=== PATIENT | female | born 1985 | race Caucasian/White ===

== ENCOUNTER 2018-12-09 17:30 | Emergency (ER) | payer BC ==
[~2018-12-09] VITALS: Ht 165.1 cm; Wt 80.0 kg
[2018-12-09] MEDS ORDERED: SODIUM CHLORIDE 0.9% 1,000 ML IV ONE (20:26)
[2018-12-09] MEDS ORDERED: KETOROLAC 30MG/ML VIAL IV STA (20:26)
[2018-12-09] MEDS ORDERED: TETRACAINE/BENZOCAINE/BUTAMBEN 20 GM SPRAY MM NR (20:30)
[2018-12-09] MEDS ORDERED: DEXAMETHASONE 10 MG/ML VIAL IV ONE (20:30)
[2018-12-09] MEDS ORDERED: CEFTRIAXONE 1 G PREMIX 50 ML IV ONE (20:30)
[2018-12-09] MEDS ORDERED: LIDOCAINE HCL/PF 1% 10 MG/ML 5ML VIAL IJ ONE (20:30)
[2018-12-10 07:25] VITALS: BP 110/80
== END 2018-12-10 07:37 | disposition short-term general hospital (02) ==
LOC: ER 19:00
DX: J36 Peritonsillar abscess (principal)
CPT/HCPCS: 42700; 81025; 87070; 87430; 96365; 96375; 99285; J0696; J1100; J1885; J3490; J7030; Z7610

== ENCOUNTER → 2024-02-13 | Outpatient (CLI) | payer BC ==
[2024-02-13 06:46] LABS: BASOPHILS % 0.7 % (0.0-2.0); EOSINOPHILS % 2.6 % (0.0-5.0); LYMPHOCYTES % 33.5 % (20.0-50.0); MEAN CORPUSCULAR HEMOGLOBIN 27.6 pg (28.0-32.0); MEAN CORPUSCULAR HGB CONC 33.4 g/dL (31.0-37.0); MEAN CORPUSCULAR VOLUME 82.5 fL (81.0-99.0); MEAN PLATELET VOLUME 9.2 fl (7.4-10.4); MONOCYTES % 7.5 % (2.0-8.0); NEUTROPHILS % 55.7 % (40.0-76.0); PLATELET 258 x1000/uL (130-400); RED BLOOD CELL COUNT 4.72 mill/uL (4.2-5.4); RED CELL DISTRIBUTION WIDTH 13.2 % (11.6-14.6); WHITE BLOOD COUNT 5.6 x1000/uL (4.5-11.0)
[2024-02-13 07:09] LABS: CLARITY URINE CLEAR (CLEAR); COLOR URINE YELLOW (YELLOW); GLUCOSE URINE 3+ (NEGATIVE); KETONES URINE NEGATIVE (NEGATIVE); LEUKOCYTE ESTERASE URINE NEGATIVE (NEGATIVE); NITRITE URINE NEGATIVE (NEGATIVE); OCCULT BLOOD URINE NEGATIVE (NEGATIVE); PROTEIN URINE NEGATIVE (NEGATIVE); SPECIFIC GRAVITY URINE 1.031 (1.005-1.030); UROBILINOGEN URINE 0.2 E.U./dL (0.2-1.0)
[2024-02-13 07:11] LABS: CALCIUM 9.2 mg/dL (8.7-10.4); CARBON DIOXIDE 25 mEq/L (21-32); CHLORIDE 99 mEq/L (98-107); POTASSIUM 3.8 mEq/L (3.5-5.1); SODIUM 132 mEq/L (136-145)
[2024-02-13 07:14] LABS: T4 FREE 1.21 ng/dL (0.89-1.76); THYROID STIMULATING HORMONE 3.52 uIU/mL (0.55-4.78)
[2024-02-13 07:15] LABS: TOTAL IRON BINDING CAPACITY 389 ug/dl (250-425)
[2024-02-13 07:16] LABS: CREATININE 0.8 mg/dL (0.6-1.0); GLUCOSE 315 mg/dL (70-105); IRON 38 ug/dL (50-170)
[2024-02-13 07:17] LABS: TRIGLYCERIDE 271 mg/dL (0-150); UREA NITROGEN BLOOD 9 mg/dL (9-23)
[2024-02-13 07:18] LABS: ALANINE AMINOTRANSFERASE 22 IU/L (10-49); ALBUMIN 4.1 g/dL (3.2-4.8); ASPARTATE AMINOTRANSFERASE 16 IU/L (<34); LDL CHOLESTEROL 119 mg/dL (5-100); PROTEIN TOTAL 7.4 g/dL (6.0-8.3)
[2024-02-13 07:19] LABS: BILIRUBIN TOTAL 0.4 mg/dL (0.1-1.0); CHOLESTEROL 195 mg/dL (<200); HDL CHOLESTEROL 41 mg/dL (>65)
[2024-02-13 07:40] LABS: MUCUS URINE 2+ /lpf (< = 2+); SQUAMOUS EPITHELIAL CELL URINE 1+ /lpf (RARE/1+)
[2024-02-13 07:41] LABS: RBC URINE NONE SEEN /hpf (0-2); WBC URINE 0-2 /hpf (0-2)
[2024-02-13 07:42] LABS: BACTERIA URINE TRACE
[2024-02-13 08:12] LABS: FERRITIN 11 ng/mL (10-291); VITAMIN B12 SERUM 578 pg/mL (211-911)
[2024-02-14 08:08] LABS: *THYROXINE INDEX FREE 2.4 (1.2-4.9); FOLICLE STIMULATING HORMONE 6.2 mIU/mL (.); LUTEINIZING HORMONE 5.9 mIU/mL (.); PROLACTIN 17.6 ng/mL (4.8-33.4); T4 THYROXINE 8.2 ug/dL (4.5-12.0); VITAMIN D 25-OH 18.9 ng/mL (30.0-100.0)
== END | disposition home or self-care (01) ==
LOC: US 06:04
PROVIDERS: ATTEND Internal Medicine Geriatric Medicine
DX: Z00.01 Encounter for general adult medical examination with abnormal findings (principal); D25.2 Subserosal leiomyoma of uterus; N39.0 Urinary tract infection, site not specified
CPT/HCPCS: 36415; 76830; 76856; 80053; 80061; 81003; 82306; 82607; 82728; 83001; 83002; 83036; 83540; 83550; 84146; 84436; 84439; 84443; 84479; 85025; 86592

== ENCOUNTER → 2024-04-03 | Outpatient (CLI) | payer BC ==
[2024-04-04 09:07] LABS: ESTRADIOL 41.9 pg/mL (.); FOLICLE STIMULATING HORMONE 4.1 mIU/mL (.); LUTEINIZING HORMONE 2.5 mIU/mL (.); PROGESTERONE 0.2 ng/mL (.); PROLACTIN 19.3 ng/mL (4.8-33.4)
[2024-04-07 09:10] LABS: TESTOSTERONE FREE 1.1 pg/mL (0.0-4.2)
== END | disposition home or self-care (01) ==
LOC: LAB 06:41
PROVIDERS: ATTEND Internal Medicine Geriatric Medicine
DX: N92.6 Irregular menstruation, unspecified (principal)
CPT/HCPCS: 36415; 82670; 83001; 83002; 83498; 84144; 84146; 84402; 84403; 84443

== ENCOUNTER → 2024-05-09 | Outpatient (CLI) | payer BC ==
[2024-05-09 07:43] LABS: CHLORIDE 104 mEq/L (98-107); POTASSIUM 3.8 mEq/L (3.5-5.1)
[2024-05-09 07:44] LABS: CARBON DIOXIDE 25 mEq/L (21-32); SODIUM 135 mEq/L (136-145)
[2024-05-09 07:49] LABS: CREATININE 0.7 mg/dL (0.6-1.0); GLUCOSE 95 mg/dL (70-105)
[2024-05-09 07:50] LABS: LDL CHOLESTEROL 86 mg/dL (5-100); TRIGLYCERIDE 148 mg/dL (0-150); UREA NITROGEN BLOOD 8 mg/dL (9-23)
[2024-05-09 07:51] LABS: ALANINE AMINOTRANSFERASE 37 IU/L (10-49); ALBUMIN 4.2 g/dL (3.2-4.8); ASPARTATE AMINOTRANSFERASE 26 IU/L (<34); CHOLESTEROL 131 mg/dL (<200)
[2024-05-09 07:52] LABS: BILIRUBIN TOTAL 0.7 mg/dL (0.1-1.0); HDL CHOLESTEROL 32 mg/dL (>65); PROTEIN TOTAL 7.5 g/dL (6.0-8.3)
[2024-05-09 08:01] LABS: BASOPHILS % 0.7 % (0.0-2.0); EOSINOPHILS % 1.7 % (0.0-5.0); HEMATOCRIT. 36.9 % (36.0-48.0); LYMPHOCYTES % 31.2 % (20.0-50.0); MEAN CORPUSCULAR HEMOGLOBIN 27.5 pg (28.0-32.0); MEAN CORPUSCULAR HGB CONC 32.5 g/dL (31.0-37.0); MEAN CORPUSCULAR VOLUME 84.5 fL (81.0-99.0); MEAN PLATELET VOLUME 9.8 fl (7.4-10.4); MONOCYTES % 7.4 % (2.0-8.0); PLATELET 232 x1000/uL (130-400); RED BLOOD CELL COUNT 4.36 mill/uL (4.2-5.4); RED CELL DISTRIBUTION WIDTH 16.1 % (11.6-14.6); WHITE BLOOD COUNT 6.1 x1000/uL (4.5-11.0)
== END | disposition home or self-care (01) ==
LOC: LAB 05:30
PROVIDERS: ATTEND Internal Medicine Geriatric Medicine
DX: E11.69 Type 2 diabetes mellitus with other specified complication (principal)
CPT/HCPCS: 36415; 80053; 80061; 83036; 85025

== ENCOUNTER → 2024-08-21 | Outpatient (CLI) | payer BC ==
[2024-08-21 07:32] LABS: CHLORIDE 105 mEq/L (98-107); SODIUM 137 mEq/L (136-145)
[2024-08-21 07:33] LABS: CARBON DIOXIDE 26 mEq/L (21-32)
[2024-08-21 07:34] LABS: CALCIUM 9.2 mg/dL (8.7-10.4)
[2024-08-21 07:38] LABS: CREATININE 0.7 mg/dL (0.6-1.0); GLUCOSE 90 mg/dL (70-105); IRON 42 ug/dL (50-170)
[2024-08-21 07:39] LABS: UREA NITROGEN BLOOD 14 mg/dL (9-23)
[2024-08-21 07:40] LABS: ALANINE AMINOTRANSFERASE 11 IU/L (10-49); ALBUMIN 4.1 g/dL (3.2-4.8); ASPARTATE AMINOTRANSFERASE 12 IU/L (<34)
[2024-08-21 07:41] LABS: BILIRUBIN TOTAL 0.5 mg/dL (0.1-1.0); PROTEIN TOTAL 7.3 g/dL (6.0-8.3); TOTAL IRON BINDING CAPACITY 552 ug/dl (250-425)
[2024-08-21 07:45] LABS: FERRITIN 4 ng/mL (10-291); VITAMIN B12 SERUM 519 pg/mL (211-911)
[2024-08-21 07:51] LABS: CLARITY URINE CLEAR (CLEAR); COLOR URINE YELLOW (YELLOW); GLUCOSE URINE NEGATIVE (NEGATIVE); KETONES URINE TRACE (NEGATIVE); LEUKOCYTE ESTERASE URINE 1+ (NEGATIVE); NITRITE URINE NEGATIVE (NEGATIVE); OCCULT BLOOD URINE NEGATIVE (NEGATIVE); PROTEIN URINE TRACE (NEGATIVE); SPECIFIC GRAVITY URINE 1.027 (1.005-1.030)
[2024-08-21 08:12] LABS: BACTERIA URINE 1+; RBC URINE 0-2 /hpf (0-2); SQUAMOUS EPITHELIAL CELL URINE 1+ /lpf (RARE/1+); YEAST URINE NONE SEEN
[2024-08-21 08:32] LABS: THYROID STIMULATING HORMONE 1.44 uIU/mL (0.55-4.78)
[2024-08-22 09:08] LABS: *CREATININE RANDOM URINE 231.6 mg/dL (Not Estab.); MICROALBUMIN RANDOM URINE 14.5 ug/mL (Not Estab.)
== END | disposition home or self-care (01) ==
LOC: LAB 06:40
PROVIDERS: ATTEND Internal Medicine Geriatric Medicine
DX: E11.69 Type 2 diabetes mellitus with other specified complication (principal)
CPT/HCPCS: 36415; 80053; 81003; 82043; 82570; 82607; 82728; 83036; 83540; 83550; 84436; 84443

== ENCOUNTER → 2025-02-24 | Outpatient (CLI) | payer BC ==
[2025-02-24 08:30] LABS: BASOPHILS % 0.6 % (0.0-2.0); HEMATOCRIT. 37.7 % (36.0-48.0); HEMOGLOBIN. 12.2 g/dL (12.0-16.0); LYMPHOCYTES % 40.1 % (20.0-50.0); MEAN CORPUSCULAR HGB CONC 32.3 g/dL (31.0-37.0); MEAN CORPUSCULAR VOLUME 80.4 fL (81.0-99.0); MEAN PLATELET VOLUME 9.5 fl (7.4-10.4); MONOCYTES % 7.3 % (2.0-8.0); PLATELET 204 x1000/uL (130-400); RED BLOOD CELL COUNT 4.69 mill/uL (4.2-5.4); RED CELL DISTRIBUTION WIDTH 18.8 % (11.6-14.6); WHITE BLOOD COUNT 4.9 x1000/uL (4.5-11.0)
[2025-02-24 08:39] LABS: CHLORIDE 102 mEq/L (98-107); POTASSIUM 4.2 mEq/L (3.5-5.1); SODIUM 138 mEq/L (136-145)
[2025-02-24 08:40] LABS: CARBON DIOXIDE 29 mEq/L (21-32)
[2025-02-24 08:45] LABS: CREATININE 0.7 mg/dL (0.6-1.0); GLUCOSE 93 mg/dL (70-105); TRIGLYCERIDE 75 mg/dL (0-150); UREA NITROGEN BLOOD 13 mg/dL (9-23)
[2025-02-24 08:46] LABS: LDL CHOLESTEROL 84 mg/dL (5-100)
[2025-02-24 08:47] LABS: ALANINE AMINOTRANSFERASE 39 IU/L (10-49); ALBUMIN 4.2 g/dL (3.2-4.8); ASPARTATE AMINOTRANSFERASE 25 IU/L (<34); BILIRUBIN TOTAL 0.6 mg/dL (0.1-1.0); CHOLESTEROL 140 mg/dL (<200); HDL CHOLESTEROL 48 mg/dL (>65); PROTEIN TOTAL 7.1 g/dL (6.0-8.3)
[2025-02-24 08:49] LABS: THYROID STIMULATING HORMONE 2.03 uIU/mL (0.55-4.78)
[2025-02-24 08:53] LABS: IRON 64 ug/dL (50-170)
[2025-02-24 08:56] LABS: TOTAL IRON BINDING CAPACITY 441 ug/dl (250-425)
[2025-02-24 09:00] LABS: FOLIC ACID (FOLATE) SERUM 16.07 ng/mL (>5.38)
== END | disposition home or self-care (01) ==
LOC: LAB 06:31
PROVIDERS: ATTEND Internal Medicine Geriatric Medicine
DX: E11.69 Type 2 diabetes mellitus with other specified complication (principal); E78.5 Hyperlipidemia, unspecified
CPT/HCPCS: 36415; 80053; 80061; 82728; 82746; 83036; 83540; 83550; 84443; 85025; 86800

== ENCOUNTER → 2025-03-03 | Outpatient (CLI) | payer BC | END | disposition home or self-care (01) | LOC: MAMMO 09:12 | PROVIDERS: ATTEND Internal Medicine Geriatric Medicine | DX: Z12.31 Encounter for screening mammogram for malignant neoplasm of breast (principal); R92.323 Mammographic fibroglandular density, bilateral breasts | CPT/HCPCS: 77063; 77067 ==

== ENCOUNTER → 2025-05-29 | Outpatient (CLI) | payer BC | END | disposition home or self-care (01) | LOC: US 09:06 | PROVIDERS: ATTEND Obstetrics & Gynecology | DX: D25.2 Subserosal leiomyoma of uterus (principal); N85.4 Malposition of uterus | CPT/HCPCS: 76830; 76856 ==